=== PATIENT | female | born 1960 | race Caucasian/White ===

== ENCOUNTER 2023-06-21 09:10 | Outpatient (RCR) | payer OTHER | END 2023-06-22 | LOC: WSPT | DX: I89.0 Lymphedema, not elsewhere classified (principal) ==

== ENCOUNTER 2023-08-09 11:30 | Outpatient (RCR) | payer OTHER ==
[2023-08-19] MEDS ORDERED: PROBIOTIC BLEN1 EACH PO (12:55)
[2023-08-19] MEDS ORDERED: ONE-A-DAY ESSE1 EACH PO (12:55)
[2023-08-19] MEDS ORDERED: VTAMINC250TA PO (12:56)
[2023-08-19] MEDS ORDERED: VITAMIND3 5000 PO (12:56)
[2023-08-19] MEDS ORDERED: LUTEIN20 M1 PO (12:57)
[2023-08-19] MEDS ORDERED: [UNRECOGNIZED DRUG - OTHER] PO ×2 (12:57→12:58)
[2023-08-19] MEDS ORDERED: EPA FISH OIL1 SGL PO (12:58)
[2023-08-19] MEDS ORDERED: SPIRULINA PO (12:59)
[2023-08-19] MEDS ORDERED: [UNRECOGNIZED DRUG - OTHER] PO (13:00)
[2023-08-19] MEDS ORDERED: [UNRECOGNIZED DRUG - OTHER] PO (13:01)
[2023-08-22] MEDS ORDERED: NORCO 325 MG-51 TAB PO ×3 (14:55→15:12)
== END 2023-08-22 | disposition home or self-care (01) ==
LOC: WSPT
DX: I89.0 Lymphedema, not elsewhere classified (principal); M79.621 Pain in right upper arm; R74.8 Abnormal levels of other serum enzymes; Z90.13 Acquired absence of bilateral breasts and nipples; Z85.3 Personal history of malignant neoplasm of breast

== ENCOUNTER → 2023-08-21 | Outpatient (CLI) | payer OTHER ==
[~2023-08-21] VITALS: Ht 172.7 cm; Wt 85.0 kg
[2023-08-21] VITALS (10 sets, daily range): BP systolic 114–148; BP diastolic 68–89; PULSE 75–94; TEMP 97.3
[~2023-08-21] MED LIST: EPA FISH OIL1 SGL PO; LUTEIN20 M1 PO; NORCO 325 MG-51 TAB PO; ONE-A-DAY ESSE1 EACH PO; PROBIOTIC BLEN1 EACH PO; SPIRULINA PO; VITAMIND3 5000 PO; VTAMINC250TA PO; [UNRECOGNIZED DRUG - OTHER] PO; [UNRECOGNIZED DRUG - OTHER] PO; [UNRECOGNIZED DRUG - OTHER] PO
[2023-08-21 13:56] LABS: ALBUMIN 3.8 gm/dL (3.4-4.8); BILIRUBIN,TOTAL 0.4 mg/dL (0.2-1.2); CALCIUM 9.5 mg/dL (8.4-10.2); CREATININE, serum 0.64 mg/dL (0.57-1.11); POTASSIUM 4.3 mmol/L (3.5-4.5); TOTAL PROTEIN 7.1 gm/dL (6.2-8.1)
[2023-08-21 14:00] LABS: HEMATOCRIT 37.5 % (37.0-47.0); HEMOGLOBIN 12.1 g/dl (12.5-16.0); MEAN CELL VOLUME 93 fl (80.0-100.0); MEAN CORPUSCULAR HEMOGLOBIN 30 pg (27-31); MEAN CORPUSCULAR HGB CONC 32 g/dl (33.0-37.0); MEAN PLATELET VOLUME 9.7 fl (7.4-10.4); PLATELET COUNT 337 K/mm3 (130-400); RED BLOOD COUNT 4.03 M/mm3 (4.10-5.30); REDCELL DISTRIBUTION WIDTH-CV 13.9 % (11.5-14.5)
--- NOTE | 2023-08-21 14:18 | NUR ---
Pt to ct per ambulation, pt onto ct table in prone position. Monitors applied and O2 on at 2l/nc.
--- NOTE | 2023-08-21 14:44 | NUR ---
Specimens obtained by Dr Aguilar and placed in formalin. Specimen labeled.
[2023-08-21 14:47] LABS: ANISOCYTOSIS 1+; BAND 1 % (0-10); BASOPHIL 1 % (0-2); EOSINOPHIL 5 % (0-4); LYMPHOCYTE 35 % (20.0-51.0); NEUTROPHILS 53 % (42.0-75.2); OVALOCYTES 1+
[2023-08-24 04:10] LABS: CANCER ANTIGEN CA 27.29 24.7 U/mL (0.0-38.6)
== END ==
LOC: COL.RAD 12:52
PROVIDERS: Internal Medicine
DX: C50.911 Malignant neoplasm of unspecified site of right female breast (principal)
CPT/HCPCS: J2250; J3010

== ENCOUNTER 2023-08-22 12:43 | Emergency (ER) | payer OTHER ==
[~2023-08-22] VITALS: Ht 172.7 cm; Wt 84.1 kg
[~2023-08-22 12:43] MED LIST changes: -NORCO 325 MG-51 TAB PO
[2023-08-22 13:01] VITALS: TEMP 99
[2023-08-22] MEDS ORDERED: NORCO 325 MG-51 TAB PO ×3 (14:55→15:12)
[2023-08-22 15:20] VITALS: BP 139/80; PULSE 82
== END 2023-08-22 15:22 | disposition home or self-care (01) ==
LOC: COL.ER 12:43
DX: S42.301A Unspecified fracture of shaft of humerus, right arm, initial encounter for closed fracture (principal); Z98.890 Other specified postprocedural states; X50.1XXA Overexertion from prolonged static or awkward postures, initial encounter
CPT/HCPCS: J1170; J2270

== ENCOUNTER → 2024-07-03 | Outpatient (CLI) | payer SELFPAY ==
[~2024-07-03] MED LIST changes: +Iohexol 300 - 100 ML VIAL IV ONE; +NORCO 325 MG-51 TAB PO; +NS 100 ML IV SCH
== END ==
LOC: COL.RAD 08:35
DX: C79.51 Secondary malignant neoplasm of bone (principal); C50.911 Malignant neoplasm of unspecified site of right female breast; J84.10 Pulmonary fibrosis, unspecified; M84.421A Pathological fracture, right humerus, initial encounter for fracture; K68.9 Other disorders of retroperitoneum; R22.9 Localized swelling, mass and lump, unspecified
CPT/HCPCS: Q9967

== ENCOUNTER → 2024-07-17 | Outpatient (CLI) | payer OTHER ==
[~2024-07-17] MED LIST changes: -Iohexol 300 - 100 ML VIAL IV ONE; -NS 100 ML IV SCH
== END ==
LOC: COL.LAB 11:25
DX: C50.911 Malignant neoplasm of unspecified site of right female breast (principal)